=== PATIENT | female | born 1965 | race Caucasian/White ===

== ENCOUNTER 2017-02-21 18:47 | Emergency (ER) | payer OTHER ==
[2017-02-21 18:55] VITALS: TEMP 99; BMI 22.8
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
[2017-02-21] MEDS ORDERED: ACETAMINOPHEN 1000 MG/100 ML VIAL (NON FORMULARY) IVPB ONE (20:08)
[2017-02-21] MEDS ORDERED: ACETAMINOPHEN INJECTION 100 ML IVPB ONE (20:37)
--- NOTE | 2017-02-21 21:42 | PDOC ---
*Physical Exam - Vital Signs Last Vital Signs Temp Pulse Resp BP Pulse Ox 99.0 F 125 H 16 122/60 97 02/21/17 18:51 02/21/17 18:51 02/21/17 18:51 02/21/17 18:51 02/21/17 18:51 ED Treatment Course - Medications Given in the ED: ED Medications Discontinued Medications Generic Name Dose Route Start Last Admin Trade Name Freq PRN Reason Stop Dose Admin Acetaminophen 1,000 mg 02/21/17 20:08 02/21/17 21:35 Ofirmev Injection - IVPB 02/21/17 20:09 1,000 mg ONCE ONE Administration Medical Decision Making - Medical Decision Making 02/21/17 21:42 agree with care from [employer] Josselin
[2017-02-21 21:48] LABS: BASOPHIL 0.6 % (0-2.0); MCHC 33.7 g/dl (32.0-36.0); MEAN CELL VOLUME 86.1 fl (80-96); MEAN PLT VOLUME 8.8 fl (7.5-11.1); NEUTROPHILS 62.8 % (42.8-82.8); PLATELET COUNT 293 K/MM3 (134-434); RDW 13.2 % (11.6-15.6); WHITE BLOOD COUNT 12.5 K/mm3 (4.0-10.0)
[2017-02-21 22:09] LABS: ALBUMIN 3.9 g/dl (3.4-5.0); ANION GAP 9 (8-16); BILIRUBIN,TOTAL 0.3 mg/dL (0.2-1.0); CALCIUM 8.9 mg/dL (8.5-10.1); CO2 24 mmol/L (21-32); CREATININE 0.8 mg/dL (0.55-1.02); SGPT/ALT 32 U/L (12-78); TOT PROT 8.3 g/dl (6.4-8.2)
[2017-02-21 22:10] LABS: ALK PHOS 82 U/L (45-117)
[2017-02-21 22:12] LABS: GLUCOSE,RANDOM 347 mg/dL (74-106); SGOT/AST 19 U/L (15-37)
[2017-02-21] MEDS ORDERED: INSULIN (NOVOLOG) ASPART 100 UNITS/ML 10ML VIAL SQ ONE (22:24)
[2017-02-21] MEDS ORDERED: INSULIN (NOVOLOG) ASPART 100 UNITS/ML 10ML VIAL ONE (23:08)
[2017-02-22] MEDS ORDERED: KETOROLAC TROMETHAMINE 30 MG/1 ML VIAL IVPUSH ONE (01:34)
[2017-02-22] MEDS ORDERED: KETOROLAC TROMETHAMINE 30 MG/1 ML VIAL ONE (01:43)
[2017-02-22 02:21] VITALS: BP 102/76; PULSE 84
--- NOTE | 2017-02-22 09:05 | EKG ---
Test Reason : Blood Pressure : / mmHG Vent. Rate : 082 BPM Atrial Rate : 082 BPM P-R Int : 148 ms QRS Dur : 136 ms QT Int : 414 ms P-R-T Axes : 071 -56 051 degrees QTc Int : 483 ms NORMAL SINUS RHYTHM RIGHT BUNDLE BRANCH BLOCK LEFT ANTERIOR FASCICULAR BLOCK BIFASCICULAR BLOCK MINIMAL VOLTAGE CRITERIA FOR LVH, MAY BE NORMAL VARIANT SEPTAL INFARCT , AGE UNDETERMINED ABNORMAL ECG WHEN COMPARED WITH ECG OF 29-AUG-2015 12:22, NO SIGNIFICANT CHANGE WAS FOUND Confirmed by YOEL SIMPSON MD ([id number]) on 02/22/2017 9:05:05 AM Referred By: Confirmed By:YOEL SIMPSON MD
--- NOTE | 2017-02-22 13:18 | PDOC ---
Patient Follow-up (Call Back) - Post ED Follow - Up Condition at time of discharge: Improved Disposition at time of original discharge: HOME Reason for Call Back: Radiology (needs renal US r/o solid mass. no answer .) - Disposition Additional Instructions/Notes: spoke with the patient regarding the cat scan results. Pt is aware she needs a renal sonogram. Pt understands she may return to ER if she is still having pain( pt states she continues to have pain, however is taking care of her child who is admitted to the hospital at this time). Pt understands she can return to ER at any time for a further evaluation.
== END 2017-02-22 02:26 | disposition home or self-care (01) ==
LOC: JER 18:47
PROC: 3E033NZ Introduction of Analgesics, Hypnotics, Sedatives into Peripheral Vein, Percutaneous Approach (ICD-10-PCS; principal; 2017-02-21)
PROC: 3E013VG Introduction of Insulin into Subcutaneous Tissue, Percutaneous Approach (ICD-10-PCS; 2017-02-21)
PROC: 3E0333Z Introduction of Anti-inflammatory into Peripheral Vein, Percutaneous Approach (ICD-10-PCS; 2017-02-21)
DX: Z04.1 Encounter for examination and observation following transport accident (principal); V49.3XXA Car occupant (driver) (passenger) injured in unspecified nontraffic accident, initial encounter; Y93.89 Activity, other specified; Y92.410 Unspecified street and highway as the place of occurrence of the external cause; C43.9 Malignant melanoma of skin, unspecified
CPT/HCPCS: 36415; 70450-TC; 72125-TC; 72128-TC; 72131-TC; 73562-TC-RT; 80053; 84703; 85025; 93005; 93010; 99283-25

== ENCOUNTER 2022-04-06 13:03 | Emergency (ER) | payer OTHER ==
[2022-04-06] MEDS ORDERED: ACETAMINOPHEN 325 MG TABLET (FP) PO ONE (13:45)
[2022-04-06 14:37] VITALS: BP 145/63; PULSE 77; RESP 20; TEMP 98; BMI 23.1
[2022-04-06] MEDS ORDERED: ACETAMINOPHEN 325 MG TABLET (FP) ONE (14:37)
[2022-04-06 14:43] LABS: HEMATOCRIT 40.3 % (32.4-45.2); HEMOGLOBIN 14.1 G/dL (10.7-15.3); MCH 30.9 pg (25.7-33.7); MCHC 34.9 g/dl (32.0-36.0); MEAN CELL VOLUME 88.5 fl (80-96); MEAN PLT VOLUME 7.8 fl (7.5-11.1); PLATELET COUNT 230.9 10^3/uL (134-434); RBC 4.55 10^6/uL (3.60-5.2); RDW 12.7 % (11.6-15.6); WHITE BLOOD COUNT 7.4 10^3/uL (4.0-10.8)
[2022-04-06 14:46] LABS: ALBUMIN 3.6 g/dl (3.4-5.0); BILIRUBIN,TOTAL 0.6 mg/dl (0.2-1); CALCIUM 9.2 mg/dl (8.5-10); CREATININE 0.6 mg/dl (0.55-1.3); MAGNESIUM 1.7 mg/dL (1.8-2.4); TOT PROT 7.4 g/dl (6.4-8.2)
[2022-04-06 15:13] LABS: INR 0.93 (0.83-1.09); PROTHROMBIN TIME (PATIENT) 10.7 SEC (9.7-13.0)
[2022-04-06 15:16] LABS: ACTIVATED PTT 26.2 SECONDS (25.2-36.5)
[2022-04-06 17:04] LABS: PLATELET ESTIMATE ADEQUATE
== END 2022-04-06 17:39 | disposition left against medical advice (07) ==
LOC: FER 13:03
DX: E11.40 Type 2 diabetes mellitus with diabetic neuropathy, unspecified (principal); M48.061 Spinal stenosis, lumbar region without neurogenic claudication; R60.0 Localized edema
CPT/HCPCS: 0241U-QW; 36415; 71045-TC-FY; 80053; 83735; 83880; 84484; 85025; 85610; 85730; 93005; 93970-TC; 99285-25

== ENCOUNTER 2022-11-18 14:24 | Observation (INO) | payer OTHER ==
[2022-11-18] MEDS ORDERED: SODIUM CHLORIDE 0.9% 500 ML INFUS.BAG IV ONE (14:51)
[2022-11-18] MEDS ORDERED: ACETAMINOPHEN 500 MG TABLET (FP) PO ONE (15:46)
[2022-11-18 15:47] LABS: HEMATOCRIT 42.4 % (32.4-45.2); HEMOGLOBIN 14.4 G/dL (10.7-15.3); MCH 30.1 pg (25.7-33.7); MEAN CELL VOLUME 88.5 fl (80-96); MEAN PLT VOLUME 8.4 fl (7.5-11.1); PLATELET COUNT 202.3 10^3/uL (134-434); RBC 4.79 10^6/uL (3.60-5.2); WHITE BLOOD COUNT 8.8 10^3/uL (4.0-10.8)
[2022-11-18] MEDS ORDERED: ACETAMINOPHEN 500 MG TABLET (FP) ONE ×2 (15:48→15:50)
[2022-11-18 15:49] LABS: EPITHELIAL CELLS FEW /hpf
[2022-11-18 16:10] LABS: ALBUMIN 4.4 g/dl (3.4-5.0); BILIRUBIN,TOTAL 0.5 mg/dl (0.2-1); BLOOD UREA NITROGEN 14.4 mg/dl (7-18); CALCIUM 9.9 mg/dl (8.5-10.1); CREATININE 0.7 mg/dl (0.6-1.3); POTASSIUM 3.7 mmol/L (3.5-5.1); SGOT/AST 15.7 U/L (15-37); SGPT/ALT 18.2 U/L (7-52); TOT PROT 7.9 g/dl (6.4-8.2)
[2022-11-18 17:01] LABS: VENOUS BASE EXCESS -2.4 mmol/L (-2-2); VENOUS O2 SATURATION 61.3 % (70-80); VENOUS PCO2 48.1 mmHg (38-52); VENOUS PH 7.318 (7.310-7.410)
[2022-11-18 17:13] LABS: N-TERMINAL BNP 137.8 pg/ml (5-125)
[2022-11-18 17:54] LABS: LACTIC ACID 2.4 mmol/L (0.4-2.0)
[2022-11-18 18:58] VITALS: BMI 23.6
[2022-11-18] MEDS ORDERED: DOCUSATE SODIUM 100 MG CAPSULE (FP) PO PRN (21:12)
[2022-11-18] MEDS ORDERED: MELATONIN 5 MG TABLETS PO PRN (21:17)
[2022-11-18] MEDS ORDERED: ACETAMINOPHEN 1000 MG/100 ML BAG IVPB PRN ×2 (21:17→21:19)
[2022-11-18] MEDS: INSULIN SLIDING SCALE (NOVOLOG) 1 VIAL SQ SCH (21:50)
[2022-11-19] MEDS ORDERED: GABAPENTIN 300 MG CAPSULE PO ONE (00:45)
[2022-11-19] MEDS: INSULIN SLIDING SCALE (NOVOLOG) 1 VIAL SQ SCH ×4 (05:50→17:12)
[2022-11-19 08:23] LABS: HEMATOCRIT 39.2 % (32.4-45.2); HEMOGLOBIN 13.3 G/dL (10.7-15.3); MCH 30.1 pg (25.7-33.7); MCHC 33.9 g/dl (32.0-36.0); MEAN PLT VOLUME 8.3 fl (7.5-11.1); PLATELET COUNT 187.1 10^3/uL (134-434); RBC 4.41 10^6/uL (3.60-5.2); RDW 13.3 % (11.6-15.6); WHITE BLOOD COUNT 6.5 10^3/uL (4.0-10.8)
[2022-11-19 08:24] LABS: INR 1.01 (0.83-1.09); PROTHROMBIN TIME (PATIENT) 11.7 SEC (9.7-13.0)
[2022-11-19 08:27] LABS: ACTIVATED PTT 24.8 SECONDS (25.2-36.5)
[2022-11-19] MEDS ORDERED: SODIUM CHLORIDE 1,000 ML IV SCH (08:45)
[2022-11-19 08:58] LABS: BLOOD UREA NITROGEN 11.6 mg/dl (7-18); CALCIUM 8.7 mg/dl (8.5-10.1); CREATININE 0.6 mg/dl (0.6-1.3); MAGNESIUM 1.8 mg/dL (1.8-2.4); PHOSPHOROUS 4.14 (2.5-4.9); POTASSIUM 3.7 mmol/L (3.5-5.1)
[2022-11-19 09:11] VITALS: RESP 18; TEMP 98.4
[2022-11-19] MEDS: LIPASE/PROTEASE/AMYLASE 6,000 UNIT CAPSULE PO SCH ×3 (09:35→18:41)
[2022-11-19] MEDS: GABAPENTIN 300 MG CAPSULE PO SCH ×2 (09:35→18:41)
[2022-11-19] MEDS ORDERED: ENOXAPARIN NA (PORCINE) 40 MG/0.4 ML DISP.SYRIN SQ SCH (10:00)
[2022-11-19] MEDS ORDERED: CLOPIDOGREL BISULFATE 75 MG TABLET (FP) PO SCH (10:00)
[2022-11-19] MEDS ORDERED: CEFTRIAXONE 1 GM in DEXTROSE 5%-WATER - 50 ML IVPB SCH (10:00)
[2022-11-19 14:21] VITALS: BP 119/5; PULSE 64
== END 2022-11-19 19:29 | disposition home or self-care (01) ==
LOC: FER 14:24 → FM/S 17:57
PROVIDERS: ADMIT Internal Medicine
PROC: 3E0337Z Introduction of Electrolytic and Water Balance Substance into Peripheral Vein, Percutaneous Approach (ICD-10-PCS; principal; 2022-11-18)
PROC: 3E013VG Introduction of Insulin into Subcutaneous Tissue, Percutaneous Approach (ICD-10-PCS; 2022-11-18)
PROC: 3E03329 Introduction of Other Anti-infective into Peripheral Vein, Percutaneous Approach (ICD-10-PCS; 2022-11-18)
PROC: 3E033NZ Introduction of Analgesics, Hypnotics, Sedatives into Peripheral Vein, Percutaneous Approach (ICD-10-PCS; 2022-11-18)
DX: N39.0 Urinary tract infection, site not specified (principal); S09.90XA Unspecified injury of head, initial encounter; Z95.0 Presence of cardiac pacemaker; Z85.820 Personal history of malignant melanoma of skin; E10.9 Type 1 diabetes mellitus without complications; Z96.41 Presence of insulin pump (external) (internal); W18.39XA Other fall on same level, initial encounter; Y93.89 Activity, other specified; Y92.22 Religious institution as the place of occurrence of the external cause
CPT/HCPCS: 36415; 70450-TC; 71045-TC-FY; 80048; 80053; 80307; 81003; 81015; 82803; 82962; 83605; 83735; 83880; 84100; 84484; 85027; 85610; 85730; 93005; 96372; 96374; 96375; 97116-GP; 97162-GP; 99285-25; G0378

== ENCOUNTER 2023-06-03 18:09 | Inpatient (IN) | payer OTHER ==
[2023-06-03] MEDS ORDERED: ONDANSETRON 4 MG/2 ML VIAL ONE (19:41)
[2023-06-03] MEDS: LACTATED RINGERS SOLUTION 1000 ML INFUS.BAG IV ONE ×2 (20:11→23:55)
[2023-06-03] MEDS: ONDANSETRON 4 MG/2 ML VIAL IVPB ONE (20:11)
[2023-06-03 20:59] LABS: VENOUS BASE EXCESS -2.4 mmol/L (-2-2); VENOUS O2 SATURATION 58.9 % (70-80); VENOUS PCO2 48.5 mmHg (38-52); VENOUS PH 7.314 (7.310-7.410)
[2023-06-03 20:59] LABS: BASO % 0.4 % (0-2.0); HEMATOCRIT 38.1 % (32.4-45.2); HEMOGLOBIN 12.4 GM/dL (10.7-15.3); LYMPH % 7.8 % (8-40); MCHC 32.4 g/dl (32.0-36.0); MEAN CELL VOLUME 83.1 fl (80-96); MEAN PLT VOLUME 7.7 fl (7.5-11.1); NEUT % 85.8 % (42.8-82.8); PLATELET COUNT 202 10^3/uL (134-434); RBC 4.58 M/mm3 (3.60-5.2); RDW 15.3 % (11.6-15.6); WHITE BLOOD COUNT 19.1 K/mm3 (4.0-10.0)
[2023-06-03] MEDS ORDERED: METOCLOPRAMIDE HCL INJECTION 10 MG/2 ML VIAL ONE (21:25)
[2023-06-03 21:26] LABS: CHLORIDE 102 mmol/L (98-107); SODIUM 139 mmol/L (136-145)
[2023-06-03 21:28] LABS: CALCIUM 8.6 mg/dL (8.5-10.1)
[2023-06-03 21:29] LABS: ALBUMIN 2.5 g/dl (3.4-5.0); ANION GAP 12 mmol/L (4-13); BLOOD UREA NITROGEN 31.5 mg/dL (7-18); CO2 25 mmol/L (21-32); MAGNESIUM 1.5 mg/dL (1.8-2.4)
[2023-06-03 21:31] LABS: CREATININE 1.4 mg/dL (0.55-1.3); SGOT/AST 17 U/L (15-37); SGPT/ALT 16 U/L (13-61)
[2023-06-03 21:32] LABS: PHOSPHOROUS 4.4 mg/dL (2.5-4.9)
[2023-06-03 21:33] LABS: TOT PROT 6.9 g/dl (6.4-8.2)
[2023-06-03 21:34] LABS: ALK PHOS 70 U/L (45-117)
[2023-06-03] MEDS: METOCLOPRAMIDE HCL INJECTION 10 MG/2 ML VIAL IVPUSH ONE ×2 (21:40→22:53)
[2023-06-03 21:46] LABS: LACTIC ACID 4.9 mmol/L (0.4-2.0)
[2023-06-03] MEDS ORDERED: ACETAMINOPHEN INJECTION 100 ML IVPB ONE (21:56)
[2023-06-03 22:07] LABS: EPI CELLS 24 /uL (0-25.1); HYALINE CASTS 0 /uL (0-3.1); PH,URINE 5.5 (5.0-8.0); URINE APPEARANCE CLOUDY; URINE BACTERIA >9,000 /uL (0-1359); URINE BILIRUBIN NEGATIVE (NEGATIVE); URINE COLOR YELLOW; URINE GLUCOSE (UA) 3+ (NEGATIVE); URINE KETONE TRACE (NEGATIVE); URINE LEUK ESTERASE 1+ (NEGATIVE); URINE NITRITE NEGATIVE (NEGATIVE); URINE PROTEIN 3+ (NEGATIVE); URINE RBC 38 /uL (0-23.9); URINE WBC 684 /uL (0-25.8)
[2023-06-03 22:09] LABS: GLUCOSE,RANDOM 409 mg/dL (74-106)
[2023-06-03] MEDS ORDERED: CEFTRIAXONE 1 GM/50 ML BAG ONE (22:41)
[2023-06-03] MEDS: CEFTRIAXONE 1,000 MG in DEXTROSE 5%-WATER - 50 ML IVPB ONE (22:49)
[2023-06-03] MEDS: INSULIN REGULAR HUMAN 100 UNITS/ML *VIAL SQ ONE (22:52)
[2023-06-04] MEDS ORDERED: MAGNESIUM SULFATE IN WATER 2 GM/50 ML IVPB IVPB ONE (00:40)
[2023-06-04] MEDS: LACTATED RINGERS SOLUTION 1,000 ML/1,000 ML INFUS.BAG IV STA ×2 (01:00→03:59)
[2023-06-04] MEDS: MAGNESIUM SULF 50% (8.12 MEQ/2 ML-1 GM VIAL) IVPB ONE (01:06)
[2023-06-04] MEDS: LACTATED RINGERS SOLUTION 1,000 ML/1,000 ML INFUS.BAG IV SCH ×2 (01:06→17:08)
[2023-06-04 02:12] LABS: LACTIC ACID 7.2 mmol/L (0.4-2.0)
[2023-06-04] MEDS ORDERED: TRIMETHOBENZAMIDE HCL 200MG/2ML INJ IM ONE (03:28)
[2023-06-04] MEDS: TRIMETHOBENZAMIDE HCL 200MG/2ML INJ IM PRN (03:56)
[2023-06-04] MEDS ORDERED: FENTANYL CITRATE/PF 50 MCG/ML VIAL ONE (04:17)
[2023-06-04] MEDS ORDERED: NOREPINEPHRINE BITARTRATE/D5W 8 MG/250 ML BAG IVPB ONE (05:05)
[2023-06-04 05:24] LABS: VENOUS BASE EXCESS -1.7 mmol/L (-2-2); VENOUS O2 SATURATION 52.8 % (70-80); VENOUS PCO2 44.7 mmHg (38-52); VENOUS PH 7.351 (7.310-7.410)
[2023-06-04 05:27] LABS: INR 1.44 (0.83-1.09); PROTHROMBIN TIME (PATIENT) 16.6 SEC (9.7-13.0)
[2023-06-04] MEDS: VANCOMYCIN/WATER 2 GRAMS 2,000 MG/400 ML PIGGYBACK IVPB ONE (05:27)
[2023-06-04] MEDS: PIPERACILLIN/TAZOB 4.5 GM 4.5 GM in DEXTROSE 5%-WATER 100 ML IVPB SCH (05:27)
[2023-06-04] MEDS: NOREPINEPHRINE BITARTRATE/D5W 8 MG/250 ML BAG IVPB SCH (05:27)
[2023-06-04 05:30] LABS: ACTIVATED PTT 28.5 SECONDS (25.2-36.5)
[2023-06-04 05:43] LABS: HEMATOCRIT 29.6 % (32.4-45.2); HEMOGLOBIN 9.5 GM/dL (10.7-15.3); MCH 27.2 pg (25.7-33.7); MCHC 32.1 g/dl (32.0-36.0); MEAN CELL VOLUME 84.6 fl (80-96); MEAN PLT VOLUME 8.3 fl (7.5-11.1); PLATELET COUNT 145 10^3/uL (134-434); WHITE BLOOD COUNT 17.4 K/mm3 (4.0-10.0)
[2023-06-04 05:46] LABS: POTASSIUM 3.9 mmol/L (3.5-5.1); SODIUM 138 mmol/L (136-145)
[2023-06-04 05:47] LABS: CHLORIDE 103 mmol/L (98-107)
[2023-06-04 05:49] LABS: CALCIUM 7.7 mg/dL (8.5-10.1)
[2023-06-04 05:50] LABS: ANION GAP 11 mmol/L (4-13); CO2 24 mmol/L (21-32); MAGNESIUM 1.9 mg/dL (1.8-2.4)
[2023-06-04 05:53] LABS: CREATININE 1.7 mg/dL (0.55-1.3); PHOSPHOROUS 3.2 mg/dL (2.5-4.9); SGOT/AST 18 U/L (15-37); SGPT/ALT 16 U/L (13-61)
[2023-06-04 05:55] LABS: ALK PHOS 50 U/L (45-117); TOT PROT 5.4 g/dl (6.4-8.2)
[2023-06-04 06:14] LABS: ALBUMIN 1.9 g/dl (3.4-5.0); GLUCOSE,RANDOM 422 mg/dL (74-106)
[2023-06-04 06:30] LABS: LACTIC ACID 4.6 mmol/L (0.4-2.0)
[2023-06-04] MEDS: INSULIN ASPART SLIDING SCALE (NOVOLOG) 1 VIAL SQ SCH (06:50)
[2023-06-04] MEDS: ACETAMINOPHEN 1000 MG/100 ML BAG IVPB PRN (07:04)
[2023-06-04 07:05] LABS: ANISOCYTOSIS 3+; MACROCYTOSIS 0; ROULEAU 1+
[2023-06-04] MEDS: MUPIROCIN 2% TOPICAL OINTMENT FOR DECOLONIZATION NS SCH (09:59)
[2023-06-04] MEDS: PANTOPRAZOLE SODIUM 40 MG VIAL IVPUSH SCH (09:59)
[2023-06-04] MEDS: GABAPENTIN 300 MG CAPSULE PO SCH (09:59)
[2023-06-04] MEDS ORDERED: CEFTRIAXONE 1 GM in DEXTROSE 5%-WATER - 50 ML IVPB SCH (10:00)
[2023-06-04] MEDS ORDERED: PANTOPRAZOLE 40 MG TABLET PO SCH (10:00)
[2023-06-04] MEDS ORDERED: morphine SULFATE 4 MG/ML VIAL ONE (10:27)
[2023-06-04] MEDS ORDERED: INSULIN (NOVOLOG) ASPART 100 UNITS/ML 10ML VIAL ONE (10:45)
[2023-06-04] MEDS: TOPIRAMATE 100 MG TABLET PO SCH (10:48)
[2023-06-04] MEDS: morphine SULFATE 4 MG/ML VIAL IVPUSH PRN (10:51)
[2023-06-04] MEDS: ENOXAPARIN NA (PORCINE) 30 MG/0.3 ML DISP.SYRIN SQ SCH ×2 (11:01→12:51)
[2023-06-04] MEDS: INSULIN REGULAR 100 UNITS in SODIUM CHLORIDE 99 ML IVPB SCH ×4 (13:02→16:58)
[2023-06-04] MEDS: HEPARIN NA (PORCINE) 5,000 UNITS/ML 1ML VIAL SQ SCH (13:09)
[2023-06-04] MEDS: PIPERACILLIN/TAZOB 3.375 GM 3.375 GM in DEXTROSE 5%-WATER - 50 ML IVPB SCH (17:02)
[2023-06-04] MEDS: CHLORHEXIDINE GLUCONATE 4% CLEANSER FOR DECOLONIZATION TP SCH (22:54)
[2023-06-05] MEDS ORDERED: ACETAMINOPHEN 1000 MG/100 ML BAG IVPB PRN (06:36)
[2023-06-05 06:42] LABS: HEMATOCRIT 31.6 % (32.4-45.2); HEMOGLOBIN 10.2 GM/dL (10.7-15.3); MCH 27.1 pg (25.7-33.7); MCHC 32.2 g/dl (32.0-36.0); MEAN CELL VOLUME 84.1 fl (80-96); MEAN PLT VOLUME 8.1 fl (7.5-11.1); PLATELET COUNT 152 10^3/uL (134-434); RBC 3.76 M/mm3 (3.60-5.2); RDW 15.4 % (11.6-15.6); WHITE BLOOD COUNT 17.4 K/mm3 (4.0-10.0)
[2023-06-05 07:02] LABS: POTASSIUM 3.5 mmol/L (3.5-5.1)
[2023-06-05 07:04] LABS: CALCIUM 7.7 mg/dL (8.5-10.1)
[2023-06-05 07:05] LABS: ALBUMIN 1.9 g/dl (3.4-5.0); MAGNESIUM 2.2 mg/dL (1.8-2.4)
[2023-06-05 07:08] LABS: CREATININE 1.2 mg/dL (0.55-1.3); PHOSPHOROUS 3.2 mg/dL (2.5-4.9)
[2023-06-05 07:09] LABS: TOT PROT 5.9 g/dl (6.4-8.2)
[2023-06-05 07:10] LABS: BILIRUBIN,TOTAL 0.6 mg/dL (0.2-1)
[2023-06-05 07:15] LABS: LACTIC ACID 2.2 mmol/L (0.4-2.0)
[2023-06-05 09:05] LABS: ANISOCYTOSIS 0; HELMET CELLS 0; HOWELL-JOLLY BODIES 0; MACROCYTOSIS 0; OVALOCYTE 0; ROULEAU 0; SICKELED CELLS 0; TARGET CELLS 0; TEAR DROP CELLS 0; TOXIC GRANULATION 0
[2023-06-05] MEDS: SODIUM CHLORIDE 1,000 ML IV SCH (13:00)
[2023-06-05] MEDS: ONDANSETRON 4 MG/2 ML VIAL IVPUSH PRN (13:13)
[2023-06-05 14:46] VITALS: BMI 23.2
[2023-06-05] MEDS: INSULIN ASPART SLIDING SCALE (NOVOLOG) 1 VIAL SQ SCH (17:20)
[2023-06-05] MEDS: INSULIN (NOVOLOG) ASPART 100 UNITS/ML 10ML VIAL SQ SCH (20:07)
[2023-06-05] MEDS: INSULIN (LEVEMIR) 100 UNITS/ML UNITS SQ SCH (22:53)
[2023-06-06 06:32] LABS: BASO % 1.1 % (0-2.0); EOS % 0.1 % (0-4.5); HEMOGLOBIN 8.6 GM/dL (10.7-15.3); LYMPH % 8.5 % (8-40); MCH 26.9 pg (25.7-33.7); MCHC 31.8 g/dl (32.0-36.0); MEAN CELL VOLUME 84.4 fl (80-96); MEAN PLT VOLUME 7.8 fl (7.5-11.1); MONO % 5.3 % (3.8-10.2); PLATELET COUNT 142 10^3/uL (134-434); RBC 3.19 M/mm3 (3.60-5.2); RDW 16.1 % (11.6-15.6); WHITE BLOOD COUNT 13.3 K/mm3 (4.0-10.0)
[2023-06-06 06:53] LABS: POTASSIUM 3.2 mmol/L (3.5-5.1)
[2023-06-06 06:56] LABS: CALCIUM 7.7 mg/dL (8.5-10.1)
[2023-06-06 06:57] LABS: ALBUMIN 1.6 g/dl (3.4-5.0); BLOOD UREA NITROGEN 30.7 mg/dL (7-18); MAGNESIUM 2.3 mg/dL (1.8-2.4)
[2023-06-06 07:00] LABS: CREATININE 1.1 mg/dL (0.55-1.3); PHOSPHOROUS 3.2 mg/dL (2.5-4.9)
[2023-06-06 07:02] LABS: BILIRUBIN,TOTAL 0.5 mg/dL (0.2-1); TOT PROT 5.7 g/dl (6.4-8.2)
[2023-06-06] MEDS: KCL 20 MEQ PREMIX BAG 20 MEQ/100 ML INFUS.BAG IVPB SCH (08:04)
[2023-06-06] MEDS: METOCLOPRAMIDE HCL INJECTION 10 MG/2 ML VIAL IVPUSH ONE (12:40)
[2023-06-06] MEDS: INSULIN (NOVOLOG) ASPART 100 UNITS/ML 10ML VIAL SQ SCH (13:35)
[2023-06-07 07:05] LABS: HEMATOCRIT 24.5 % (32.4-45.2); HEMOGLOBIN 7.8 GM/dL (10.7-15.3); MCH 27.2 pg (25.7-33.7); MCHC 31.8 g/dl (32.0-36.0); MEAN CELL VOLUME 85.7 fl (80-96); MEAN PLT VOLUME 8.1 fl (7.5-11.1); PLATELET COUNT 154 10^3/uL (134-434); RBC 2.87 M/mm3 (3.60-5.2); RDW 15.9 % (11.6-15.6); WHITE BLOOD COUNT 11.1 K/mm3 (4.0-10.0)
[2023-06-07 07:24] LABS: POTASSIUM 3.1 mmol/L (3.5-5.1)
[2023-06-07 07:31] LABS: PHOSPHOROUS 1.7 mg/dL (2.5-4.9)
[2023-06-07 07:32] LABS: ALBUMIN 1.5 g/dl (3.4-5.0); BLOOD UREA NITROGEN 27.4 mg/dL (7-18)
[2023-06-07 07:33] LABS: BILIRUBIN,TOTAL 0.7 mg/dL (0.2-1); CALCIUM 7.4 mg/dL (8.5-10.1); MAGNESIUM 2.3 mg/dL (1.8-2.4); TOT PROT 5.5 g/dl (6.4-8.2)
[2023-06-07 08:54] LABS: ANISOCYTOSIS 0; MACROCYTOSIS 0
[2023-06-07] MEDS: POTASSIUM CHLORIDE TABS 20 MEQ TABLET.ER (FP) PO ONE (13:30)
[2023-06-07] MEDS: NAPH,MB-DB/K PH,MBDB POWDER PACKET PO ONE (15:41)
[2023-06-07] MEDS: ACETAMINOPHEN 1000 MG/100 ML BAG IVPB PRN (15:42)
[2023-06-07] MEDS: POTASSIUM PHOSPHATE 45 MM in SODIUM CHLORIDE 500 ML IVPB ONE (17:22)
[2023-06-07] MEDS ORDERED: TRIMETHOBENZAMIDE HCL 200MG/2ML INJ IM PRN (21:14)
[2023-06-07] MEDS ORDERED: SODIUM CHLORIDE 1,000 ML IV SCH (21:14)
[2023-06-07] MEDS ORDERED: MUPIROCIN 2% TOPICAL OINTMENT FOR DECOLONIZATION NS SCH (22:00)
[2023-06-07] MEDS ORDERED: CHLORHEXIDINE GLUCONATE 4% CLEANSER FOR DECOLONIZATION TP SCH (22:00)
[2023-06-07] MEDS ORDERED: INSULIN (NOVOLOG) ASPART 100 UNITS/ML 10ML VIAL ONE (22:09)
[2023-06-07] MEDS: GABAPENTIN 300 MG CAPSULE PO SCH (23:07)
[2023-06-07] MEDS: HEPARIN NA (PORCINE) 5,000 UNITS/ML 1ML VIAL SQ SCH (23:07)
[2023-06-07] MEDS: INSULIN (LEVEMIR) 100 UNITS/ML UNITS SQ SCH (23:08)
[2023-06-07] MEDS: INSULIN ASPART SLIDING SCALE (NOVOLOG) 1 VIAL SQ SCH (23:09)
[2023-06-07] MEDS: TOPIRAMATE 100 MG TABLET PO SCH (23:10)
[2023-06-08] MEDS: PIPERACILLIN/TAZOB 3.375 GM 3.375 GM in DEXTROSE 5%-WATER - 50 ML IVPB SCH (02:32)
[2023-06-08] MEDS: INSULIN (NOVOLOG) ASPART 100 UNITS/ML 10ML VIAL SQ SCH ×2 (07:17→13:08)
[2023-06-08] MEDS: NOREPINEPHRINE BITARTRATE/D5W 8 MG/250 ML BAG IVPB SCH (08:31)
[2023-06-08] MEDS: PIPERACILLIN/TAZOB 4.5 GM 4.5 GM in DEXTROSE 5%-WATER 100 ML IVPB SCH (08:32)
[2023-06-08] MEDS: PANTOPRAZOLE SODIUM 40 MG VIAL IVPUSH SCH (10:52)
[2023-06-08 14:25] LABS: HEMATOCRIT 27.5 % (32.4-45.2); HEMOGLOBIN 8.8 GM/dL (10.7-15.3); MCH 27.6 pg (25.7-33.7); MCHC 31.9 g/dl (32.0-36.0); MEAN CELL VOLUME 86.5 fl (80-96); RBC 3.18 M/mm3 (3.60-5.2); RDW 16.4 % (11.6-15.6); WHITE BLOOD COUNT 14.5 K/mm3 (4.0-10.0)
[2023-06-08 14:50] LABS: POTASSIUM 3.6 mmol/L (3.5-5.1)
[2023-06-08 14:53] LABS: CALCIUM 7.4 mg/dL (8.5-10.1)
[2023-06-08 14:54] LABS: ALBUMIN 1.6 g/dl (3.4-5.0); BLOOD UREA NITROGEN 21.5 mg/dL (7-18); MAGNESIUM 2.3 mg/dL (1.8-2.4)
[2023-06-08 14:57] LABS: CREATININE 1.1 mg/dL (0.55-1.3); PHOSPHOROUS 3.3 mg/dL (2.5-4.9)
[2023-06-08 14:58] LABS: BILIRUBIN,TOTAL 0.6 mg/dL (0.2-1)
[2023-06-08 14:59] LABS: TOT PROT 5.9 g/dl (6.4-8.2)
[2023-06-08] MEDS: MAG HYDROX/AL HYDROX/SIMETH 30 ML UNIT-DOSE CUP PO PRN (16:02)
[2023-06-08] MEDS ORDERED: PIPERACILLIN/TAZOBACTAM 3.375 GM VIAL IVPB ONE (17:28)
[2023-06-08] MEDS: SODIUM CHLORIDE 1,000 ML IV STA (19:36)
[2023-06-08] MEDS ORDERED: INSULIN (NOVOLOG) ASPART 100 UNITS/ML 10ML VIAL ONE (21:05)
[2023-06-08] MEDS: ACETAMINOPHEN 1000 MG/100 ML BAG IVPB PRN (21:09)
[2023-06-08] MEDS: traZODone HCL 50 MG TABLET (FP) PO SCH (21:10)
[2023-06-08] MEDS: INSULIN (LEVEMIR) 100 UNITS/ML UNITS SQ SCH (21:26)
[2023-06-08] MEDS ORDERED: TOPIRAMATE 100 MG TABLET PO SCH (22:00)
[2023-06-08] MEDS: CHOLESTYRAMINE/SUCROSE 4 GM PACKET PO SCH (22:52)
[2023-06-09] MEDS: CHOLESTYRAMINE/ASPARTAME 4 GM PACKET PO SCH (09:37)
[2023-06-09] MEDS: DULoxetine HCL 30 MG CAPSULE.DR PO SCH (09:51)
[2023-06-09 09:56] LABS: BASO % 0.2 % (0-2.0); HEMATOCRIT 23.4 % (32.4-45.2); HEMOGLOBIN 7.7 GM/dL (10.7-15.3); LYMPH % 9.7 % (8-40); MCH 27.9 pg (25.7-33.7); MEAN CELL VOLUME 84.5 fl (80-96); MEAN PLT VOLUME 8.2 fl (7.5-11.1); MONO % 4.8 % (3.8-10.2); NEUT % 84.3 % (42.8-82.8); PLATELET COUNT 270 10^3/uL (134-434); RBC 2.76 M/mm3 (3.60-5.2); WHITE BLOOD COUNT 13.8 K/mm3 (4.0-10.0)
[2023-06-09 09:58] LABS: POTASSIUM 3.3 mmol/L (3.5-5.1)
[2023-06-09 10:08] LABS: ALBUMIN 1.4 g/dl (3.4-5.0); CALCIUM 7.1 mg/dL (8.5-10.1)
[2023-06-09 10:09] LABS: BLOOD UREA NITROGEN 16.1 mg/dL (7-18); MAGNESIUM 2.3 mg/dL (1.8-2.4)
[2023-06-09 10:10] LABS: BILIRUBIN,TOTAL 0.4 mg/dL (0.2-1); TOT PROT 5.6 g/dl (6.4-8.2)
[2023-06-09] MEDS: POTASSIUM CHLORIDE ORAL LIQUID 20 MEQ/15 ML PO ONE ×2 (12:04→13:40)
[2023-06-09] MEDS: SODIUM CHLORIDE 1,000 ML IV SCH (13:38)
[2023-06-09] MEDS: KCL 10 MEQ IVPB 10 MEQ/100 ML INFUS.BAG IVPB SCH (13:39)
[2023-06-09 16:40] LABS: BASO % 0.2 % (0-2.0); EOS % 1.5 % (0-4.5); HEMATOCRIT 25.3 % (32.4-45.2); HEMOGLOBIN 8.2 GM/dL (10.7-15.3); LYMPH % 11.6 % (8-40); MCH 27.6 pg (25.7-33.7); MCHC 32.5 g/dl (32.0-36.0); MEAN PLT VOLUME 7.9 fl (7.5-11.1); MONO % 4.8 % (3.8-10.2); NEUT % 81.9 % (42.8-82.8); PLATELET COUNT 304 10^3/uL (134-434); RBC 2.98 M/mm3 (3.60-5.2); RDW 16.5 % (11.6-15.6); WHITE BLOOD COUNT 17.9 K/mm3 (4.0-10.0)
[2023-06-09] MEDS: ONDANSETRON 4 MG/2 ML VIAL IVPUSH PRN (17:02)
[2023-06-10] MEDS: PIPERACILLIN/TAZOB 4.5 GM 4.5 GM in DEXTROSE 5%-WATER 100 ML IVPB SCH (02:54)
[2023-06-10] MEDS: ONDANSETRON 4 MG/2 ML VIAL IVPUSH ONE (03:33)
[2023-06-10] MEDS: ACETAMINOPHEN 1000 MG/100 ML BAG IVPB ONE (07:58)
[2023-06-10] MEDS: PROCHLORPERAZINE INJECTION 10 MG/2 ML VIAL IVPB ONE (08:27)
[2023-06-10] MEDS ORDERED: FENTANYL PATCH WASTE TD PRN (08:39)
[2023-06-10 08:58] LABS: HEMATOCRIT 30.2 % (32.4-45.2); HEMOGLOBIN 9.5 GM/dL (10.7-15.3); MCH 27.2 pg (25.7-33.7); MCHC 31.6 g/dl (32.0-36.0); MEAN CELL VOLUME 86.1 fl (80-96); MEAN PLT VOLUME 8.4 fl (7.5-11.1); PLATELET COUNT 403 10^3/uL (134-434); WHITE BLOOD COUNT 22.7 K/mm3 (4.0-10.0)
[2023-06-10 09:29] LABS: POTASSIUM 3.9 mmol/L (3.5-5.1)
[2023-06-10 09:44] LABS: ALBUMIN 1.7 g/dl (3.4-5.0); BLOOD UREA NITROGEN 14.3 mg/dL (7-18); CALCIUM 7.5 mg/dL (8.5-10.1)
[2023-06-10 09:48] LABS: CREATININE 0.8 mg/dL (0.55-1.3)
[2023-06-10 09:49] LABS: BILIRUBIN,TOTAL 0.5 mg/dL (0.2-1); TOT PROT 6.8 g/dl (6.4-8.2)
[2023-06-10] MEDS: fentaNYL 25mcg/hr PATCH.TD72 TD SCH (10:50)
[2023-06-10] MEDS: SCOPOLAMINE HYDROBROMIDE 1 PATCH PATCH.TD72 TD SCH (10:51)
[2023-06-10] MEDS: TAMSULOSIN HCL 0.4 MG CAP PO ONE (11:01)
[2023-06-10 11:52] LABS: ANISOCYTOSIS 0; MACROCYTOSIS 0
[2023-06-10] MEDS ORDERED: FOSAPREPITANT DIMEGLUMINE 150 MG in SODIUM CHLORIDE 145 ML IVPB ONE (15:57)
[2023-06-10] MEDS: FOSAPREPITANT DIMEGLUMINE 150 MG in SODIUM CHLORIDE 145 ML IVPB ONE (18:12)
[2023-06-10] MEDS ORDERED: PIPERACILLIN/TAZOBACTAM 4.5 GM VIAL IVPB ONE (18:43)
[2023-06-11] MEDS ORDERED: PIPERACILLIN/TAZOBACTAM 4.5 GM VIAL IVPB ONE (02:00)
[2023-06-11] MEDS: TAMSULOSIN HCL 0.4 MG CAP PO SCH (09:41)
[2023-06-11 09:48] LABS: BASO % 0.4 % (0-2.0); EOS % 0.9 % (0-4.5); HEMATOCRIT 24.4 % (32.4-45.2); LYMPH % 8.8 % (8-40); MCH 27.7 pg (25.7-33.7); MCHC 32.8 g/dl (32.0-36.0); MEAN CELL VOLUME 84.5 fl (80-96); MEAN PLT VOLUME 7.6 fl (7.5-11.1); MONO % 4.2 % (3.8-10.2); NEUT % 85.7 % (42.8-82.8); PLATELET COUNT 381 10^3/uL (134-434); RBC 2.88 M/mm3 (3.60-5.2); RDW 15.9 % (11.6-15.6); WHITE BLOOD COUNT 16.6 K/mm3 (4.0-10.0)
[2023-06-11 10:07] LABS: POTASSIUM 3.5 mmol/L (3.5-5.1)
[2023-06-11 10:09] LABS: CALCIUM 7.2 mg/dL (8.5-10.1)
[2023-06-11 10:10] LABS: ALBUMIN 1.5 g/dl (3.4-5.0); BLOOD UREA NITROGEN 13.7 mg/dL (7-18); MAGNESIUM 2.3 mg/dL (1.8-2.4)
[2023-06-11 10:13] LABS: CREATININE 0.7 mg/dL (0.55-1.3)
[2023-06-11 10:14] LABS: TOT PROT 5.8 g/dl (6.4-8.2)
[2023-06-11 10:15] LABS: BILIRUBIN,TOTAL 0.3 mg/dL (0.2-1)
[2023-06-11] MEDS: LACTATED RINGERS SOLUTION 1,000 ML/1,000 ML INFUS.BAG IV SCH (13:09)
[2023-06-11] MEDS: AMINO ACIDS 4.25%/D5W 1,000 ML IV SCH (16:10)
[2023-06-11] MEDS ORDERED: DEXTROSE 50%-WATER 25 GM/50 ML DISP.SYRIN ONE (16:45)
[2023-06-11] MEDS: DEXTROSE 50%-WATER 25 GM/50 ML DISP.SYRIN IVPUSH ONE (17:30)
[2023-06-12] MEDS ORDERED: PIPERACILLIN/TAZOBACTAM 4.5 GM VIAL IVPB ONE (02:12)
[2023-06-12 09:45] LABS: BASO % 0.6 % (0-2.0); HEMATOCRIT 25.1 % (32.4-45.2); HEMOGLOBIN 7.9 GM/dL (10.7-15.3); LYMPH % 11.7 % (8-40); MCHC 31.6 g/dl (32.0-36.0); MEAN CELL VOLUME 85.5 fl (80-96); MEAN PLT VOLUME 7.7 fl (7.5-11.1); MONO % 4.9 % (3.8-10.2); NEUT % 81.8 % (42.8-82.8); PLATELET COUNT 418 10^3/uL (134-434); RBC 2.94 M/mm3 (3.60-5.2); RDW 15.6 % (11.6-15.6); WHITE BLOOD COUNT 15.7 K/mm3 (4.0-10.0)
[2023-06-12 10:03] LABS: POTASSIUM 3.3 mmol/L (3.5-5.1)
[2023-06-12 10:17] LABS: ALBUMIN 1.6 g/dl (3.4-5.0); BLOOD UREA NITROGEN 10.5 mg/dL (7-18)
[2023-06-12 10:18] LABS: MAGNESIUM 2.1 mg/dL (1.8-2.4)
[2023-06-12 10:20] LABS: CALCIUM 7.6 mg/dL (8.5-10.1); CREATININE 0.8 mg/dL (0.55-1.3)
[2023-06-12 10:21] LABS: BILIRUBIN,TOTAL 0.2 mg/dL (0.2-1); TOT PROT 6.2 g/dl (6.4-8.2)
[2023-06-12] MEDS ORDERED: oxyCODONE HCL 5 MG TABLET PO PRN (10:38)
[2023-06-12] MEDS: fentaNYL 25mcg/hr PATCH.TD72 TD SCH (11:08)
[2023-06-12] MEDS: fentaNYL 12mcg/hr PATCH.TD72 TD SCH (11:09)
[2023-06-12] MEDS: FENTANYL PATCH WASTE TD PRN (11:10)
[2023-06-12] MEDS: MULTIVITAMINS (DAILY MVI) TABLET (FP) PO SCH (11:56)
[2023-06-12] MEDS: POTASSIUM CHLORIDE ORAL LIQUID 20 MEQ/15 ML PO ONE (15:37)
[2023-06-13 08:51] LABS: BASO % 0.5 % (0-2.0); EOS % 0.7 % (0-4.5); HEMATOCRIT 25.4 % (32.4-45.2); HEMOGLOBIN 8.1 GM/dL (10.7-15.3); LYMPH % 14.4 % (8-40); MCH 26.9 pg (25.7-33.7); MCHC 31.7 g/dl (32.0-36.0); MEAN CELL VOLUME 84.8 fl (80-96); MEAN PLT VOLUME 7.4 fl (7.5-11.1); MONO % 5.6 % (3.8-10.2); NEUT % 78.8 % (42.8-82.8); PLATELET COUNT 427 10^3/uL (134-434); RDW 15.6 % (11.6-15.6); WHITE BLOOD COUNT 14.7 K/mm3 (4.0-10.0)
[2023-06-13 09:17] LABS: POTASSIUM 3.4 mmol/L (3.5-5.1)
[2023-06-13 10:27] LABS: ALBUMIN 1.6 g/dl (3.4-5.0); BLOOD UREA NITROGEN 6.6 mg/dL (7-18)
[2023-06-13] MEDS: ACETAMINOPHEN 325 MG TABLET (FP) PO PRN (10:28)
[2023-06-13 10:29] LABS: CREATININE 0.8 mg/dL (0.55-1.3); MAGNESIUM 1.8 mg/dL (1.8-2.4)
[2023-06-13] MEDS: PANTOPRAZOLE 40 MG TABLET PO SCH (10:30)
[2023-06-13 10:31] LABS: BILIRUBIN,TOTAL 0.2 mg/dL (0.2-1); TOT PROT 6.5 g/dl (6.4-8.2)
[2023-06-13] MEDS: POTASSIUM CHLORIDE ORAL LIQUID 20 MEQ/15 ML PO ONE (12:42)
[2023-06-14] MEDS ORDERED: INSULIN (NOVOLOG) ASPART 100 UNITS/ML 10ML VIAL ONE (21:55)
[2023-06-15] MEDS ORDERED: INSULIN (LEVEMIR) 100 UNITS/ML UNITS SQ ONE (08:39)
[2023-06-15 15:05] VITALS: RESP 18
[2023-06-15] MEDS: ENOXAPARIN NA (PORCINE) 40 MG/0.4 ML DISP.SYRIN SQ SCH (18:44)
[2023-06-15] MEDS ORDERED: INSULIN (NOVOLOG) ASPART 100 UNITS/ML 10ML VIAL ONE (21:15)
[2023-06-16] MEDS ORDERED: CEFTRIAXONE 2 GM-D5W BAG 2 GM/50 ML BAG IVPB SCH (14:45)
[2023-06-16] MEDS: CEFTRIAXONE 1 GM in DEXTROSE 5%-WATER - 50 ML IVPB SCH (18:19)
[2023-06-16] MEDS ORDERED: INSULIN (NOVOLOG) ASPART 100 UNITS/ML 10ML VIAL ONE (21:24)
[2023-06-17] MEDS ORDERED: INSULIN (NOVOLOG) ASPART 100 UNITS/ML 10ML VIAL ONE (05:42)
[2023-06-17 09:32] LABS: BASO % 0.6 % (0-2.0); EOS % 1.3 % (0-4.5); HEMATOCRIT 26.8 % (32.4-45.2); HEMOGLOBIN 8.7 GM/dL (10.7-15.3); LYMPH % 15.8 % (8-40); MCH 27.4 pg (25.7-33.7); MCHC 32.3 g/dl (32.0-36.0); MEAN PLT VOLUME 7.1 fl (7.5-11.1); MONO % 6.9 % (3.8-10.2); NEUT % 75.4 % (42.8-82.8); PLATELET COUNT 517 10^3/uL (134-434); RBC 3.15 M/mm3 (3.60-5.2); WHITE BLOOD COUNT 9.4 K/mm3 (4.0-10.0)
[2023-06-17 10:08] LABS: POTASSIUM 3.8 mmol/L (3.5-5.1)
[2023-06-17 10:11] LABS: ALBUMIN 1.9 g/dl (3.4-5.0); BLOOD UREA NITROGEN 7.4 mg/dL (7-18)
[2023-06-17 10:14] LABS: CREATININE 0.8 mg/dL (0.55-1.3)
[2023-06-17 10:16] LABS: BILIRUBIN,TOTAL 0.2 mg/dL (0.2-1); TOT PROT 7.1 g/dl (6.4-8.2)
[2023-06-17 10:22] VITALS: BP 138/74; PULSE 72; TEMP 97.9
[2023-06-17 10:24] LABS: CALCIUM 8.6 mg/dL (8.5-10.1)
[2023-06-17] MEDS: metroNIDAZOLE 250 MG TABLET PO SCH (15:39)
[2023-06-17] MEDS: ACETAMINOPHEN 1000 MG/100 ML BAG IVPB ONE (17:24)
== END 2023-06-17 21:12 | DRG 871 ==
LOC: JER 18:09 → JERBED 23:28 → JICU 06-04 06:56 → J8W 06-07 20:47
PROVIDERS: ADMIT Internal Medicine; ATTEND Nurse Practitioner Family
PROC: 02HV33Z Insertion of Infusion Device into Superior Vena Cava, Percutaneous Approach (ICD-10-PCS; principal; 2023-06-04)
PROC: B548ZZA Ultrasonography of Superior Vena Cava, Guidance (ICD-10-PCS; 2023-06-04)
DX: A41.9 Sepsis, unspecified organism (principal); G93.41 Metabolic encephalopathy; R65.21 Severe sepsis with septic shock; J18.9 Pneumonia, unspecified organism; N17.9 Acute kidney failure, unspecified; E87.20 Acidosis, unspecified; I24.89 Other forms of acute ischemic heart disease; N12 Tubulo-interstitial nephritis, not specified as acute or chronic; Z79.4 Long term (current) use of insulin; E11.65 Type 2 diabetes mellitus with hyperglycemia; E87.6 Hypokalemia; Z95.0 Presence of cardiac pacemaker; E11.40 Type 2 diabetes mellitus with diabetic neuropathy, unspecified; E83.51 Hypocalcemia
CPT/HCPCS: 0241U-QW; 36415; 71045-TC-FY; 71250-TC; 74176-TC; 74177-TC; 80048; 80053; 81003; 82010; 82803; 82947; 82962; 83036; 83605; 83690; 83735; 83930; 84100; 84484; 85025; 85610; 85730; 86140; 86850; 86900; 86901; 87040; 87086; 87186; 87324; 87449; 87635; 93005; 93010; 94010; 94761; 97116-GP; 97161-GP; 99285-25; J0131; J1453; J1644; Q9967

== ENCOUNTER 2023-08-13 19:54 | Inpatient (IN) | payer OTHER ==
[2023-08-13] MEDS ORDERED: morphine CARPU-JECT 4 MG/1 ML DISP.SYRIN IVPUSH ONE (20:09)
[2023-08-13] MEDS ORDERED: ACETAMINOPHEN INJECTION 100 ML IVPB ONE (20:26)
[2023-08-13] MEDS: ACETAMINOPHEN 1000 MG/100 ML BAG IVPB ONE (20:46)
[2023-08-13 21:26] LABS: HEMATOCRIT 37.4 % (32.4-45.2); HEMOGLOBIN 12.2 G/dL (10.7-15.3); MCH 26.8 pg (25.7-33.7); MCHC 32.6 g/dl (32.0-36.0); MEAN CELL VOLUME 82.1 fl (80-96); MEAN PLT VOLUME 8.2 fl (7.5-11.1); PLATELET COUNT 322.9 10^3/uL (134-434); RBC 4.55 10^6/uL (3.60-5.2); RDW 15.5 % (11.6-15.6); WHITE BLOOD COUNT 9.8 10^3/uL (4.0-10.8)
[2023-08-13 21:36] LABS: ALBUMIN 4.4 g/dl (3.4-5.0); BILIRUBIN,TOTAL 0.3 mg/dl (0.2-1); CALCIUM 10.1 mg/dl (8.5-10.1); CREATININE 0.8 mg/dl (0.6-1.3); POTASSIUM 4.2 mmol/L (3.5-5.1); TOT PROT 9.6 g/dl (6.4-8.2)
[2023-08-13 22:44] LABS: ANISOCYTOSIS 1+; PLATELET ESTIMATE ADEQUATE
[2023-08-14] MEDS ORDERED: PIPERACILLIN/TAZOBACTAM 4.5 GM VIAL IVPB ONE (00:54)
[2023-08-14] MEDS: PIPERACILLIN/TAZOB 4.5 GM 4.5 GM/100 ML BAG IVPB ONE (01:02)
[2023-08-14] MEDS ORDERED: PIPERACILLIN/TAZOBACTAM 3.375 GM VIAL IVPB ONE (06:56)
[2023-08-14 07:20] LABS: BASO % 0.7 % (0-2.0); EOS % 3.4 % (0-4.5); HEMATOCRIT 31.7 % (32.4-45.2); HEMOGLOBIN 10.3 GM/dL (10.7-15.3); LYMPH % 42.2 % (8-40); MCH 26.5 pg (25.7-33.7); MCHC 32.6 g/dl (32.0-36.0); MEAN CELL VOLUME 81.2 fl (80-96); MEAN PLT VOLUME 7.4 fl (7.5-11.1); MONO % 5.5 % (3.8-10.2); NEUT % 48.2 % (42.8-82.8); PLATELET COUNT 305 10^3/uL (134-434); RBC 3.91 M/mm3 (3.60-5.2); WHITE BLOOD COUNT 8.6 K/mm3 (4.0-10.0)
[2023-08-14 07:32] LABS: INR 0.98 (0.83-1.09); PROTHROMBIN TIME (PATIENT) 11.4 SEC (9.7-13.0)
[2023-08-14 07:35] LABS: POTASSIUM 4.2 mmol/L (3.5-5.1)
[2023-08-14 07:35] LABS: ACTIVATED PTT 26.1 SECONDS (25.2-36.5)
[2023-08-14 07:37] LABS: BLOOD UREA NITROGEN 14.2 mg/dL (7-18); CALCIUM 9.1 mg/dL (8.5-10.1)
[2023-08-14 07:41] LABS: CREATININE 0.8 mg/dL (0.55-1.3)
[2023-08-14] MEDS ORDERED: HYDROmorphone HCL/PF 1 MG/ML VIAL IVPUSH PRN (07:46)
[2023-08-14] MEDS: PIPERACILLIN/TAZOB 3.375 GM 3.375 GM in DEXTROSE 5%-WATER - 50 ML IVPB SCH ×2 (07:49→17:45)
[2023-08-14] MEDS: INSULIN ASPART SLIDING SCALE (NOVOLOG) 1 VIAL SQ SCH ×3 (08:02→17:03)
[2023-08-14] MEDS ORDERED: INSULIN REGULAR HUMAN 100 UNITS/ML *VIAL ONE (08:07)
[2023-08-14] MEDS ORDERED: FENTANYL TD SCH (10:15)
[2023-08-14] MEDS ORDERED: FENTANYL PATCH WASTE TD PRN (10:16)
[2023-08-14] MEDS: fentaNYL 12mcg/hr PATCH.TD72 TD SCH (10:21)
[2023-08-14] MEDS: GABAPENTIN 300 MG CAPSULE PO SCH (10:21)
[2023-08-14] MEDS ORDERED: DEXTROSE 50%-WATER 25 GM/50 ML DISP.SYRIN IVPUSH PRN (10:45)
[2023-08-14] MEDS ORDERED: INSULIN ASPART SLIDING SCALE (NOVOLOG) 1 VIAL SQ ONE ×2 (11:04→17:52)
[2023-08-14] MEDS: INSULIN (NOVOLOG) ASPART 100 UNITS/ML 10ML VIAL SQ SCH (11:07)
[2023-08-14] MEDS: LACTATED RINGERS SOLUTION 1,000 ML/1,000 ML INFUS.BAG IV SCH (11:07)
[2023-08-14] MEDS: ACETAMINOPHEN 1000 MG/100 ML BAG IVPB PRN (11:07)
[2023-08-14 11:26] LABS: MAGNESIUM 1.9 mg/dL (1.8-2.4)
[2023-08-14] MEDS ORDERED: MIDAZOLAM HCL 2 MG/2 ML SINGLE DOSE VIAL ONE (11:27)
[2023-08-14] MEDS ORDERED: FENTANYL CITRATE/PF 50 MCG/ML VIAL ONE ×2 (11:28)
[2023-08-14] MEDS ORDERED: INSULIN ASPART SLIDING SCALE (NOVOLOG) 1 VIAL SQ SCH (12:00)
[2023-08-14] MEDS: SODIUM CHLORIDE 500 ML IV SCH (12:40)
[2023-08-14] MEDS: MIDAZOLAM HCL 2 MG/2 ML SINGLE DOSE VIAL IVPUSH ONE ×2 (12:43→12:55)
[2023-08-14] MEDS: FENTANYL CITRATE/PF 50 MCG/ML VIAL IVPUSH ONE ×2 (12:43→12:55)
[2023-08-14] MEDS: HYDROmorphone HCl 2 MG/ML VIAL IVPB PRN (16:56)
[2023-08-14] MEDS: ONDANSETRON 4 MG/2 ML VIAL IVPUSH PRN (17:48)
[2023-08-14] MEDS: KETOROLAC TROMETHAMINE 30 MG/1 ML VIAL IVPUSH SCH (18:02)
[2023-08-14] MEDS ORDERED: INSULIN (LEVEMIR) 100 UNITS/ML UNITS SQ SCH ×2 (22:00)
[2023-08-14] MEDS: INSULIN (LEVEMIR) 100 UNITS/ML UNITS SQ SCH (22:48)
[2023-08-15] MEDS: TRIMETHOBENZAMIDE HCL 200MG/2ML INJ IM ONE ×2 (06:51→08:33)
[2023-08-15 08:02] LABS: BASO % 0.7 % (0-2.0); EOS % 2.7 % (0-4.5); HEMOGLOBIN 11.1 GM/dL (10.7-15.3); LYMPH % 28.6 % (8-40); MCH 26.3 pg (25.7-33.7); MCHC 32.6 g/dl (32.0-36.0); MEAN CELL VOLUME 80.8 fl (80-96); MEAN PLT VOLUME 7.2 fl (7.5-11.1); PLATELET COUNT 305 10^3/uL (134-434); RDW 15.3 % (11.6-15.6); WHITE BLOOD COUNT 6.9 K/mm3 (4.0-10.0)
[2023-08-15 08:21] LABS: POTASSIUM 4.2 mmol/L (3.5-5.1)
[2023-08-15 08:24] LABS: ALBUMIN 2.9 g/dl (3.4-5.0); BLOOD UREA NITROGEN 15.4 mg/dL (7-18); CALCIUM 9.1 mg/dL (8.5-10.1)
[2023-08-15 08:27] LABS: CREATININE 0.9 mg/dL (0.55-1.3); PHOSPHOROUS 5.4 mg/dL (2.5-4.9)
[2023-08-15 08:29] LABS: BILIRUBIN,TOTAL 0.4 mg/dL (0.2-1)
[2023-08-15] MEDS: PROCHLORPERAZINE INJECTION 10 MG/2 ML VIAL IVPB ONE (09:56)
[2023-08-15] MEDS ORDERED: INSULIN ASPART SLIDING SCALE (NOVOLOG) 1 VIAL SQ ONE ×2 (10:35→21:25)
[2023-08-15] MEDS: fentaNYL 25mcg/hr PATCH.TD72 TD SCH (13:30)
[2023-08-15] MEDS ORDERED: PIPERACILLIN/TAZOB 3.375 GM 3.375 GM in DEXTROSE 5%-WATER - 50 ML IVPB SCH (16:00)
[2023-08-16] MEDS: ASPIRIN COATED 81 MG TABLET.EC PO SCH (09:18)
[2023-08-16] MEDS: PANTOPRAZOLE 40 MG TABLET PO SCH (09:18)
[2023-08-16 10:05] LABS: HEMATOCRIT 32.9 % (32.4-45.2); HEMOGLOBIN 10.9 GM/dL (10.7-15.3); MCH 26.7 pg (25.7-33.7); MCHC 33.1 g/dl (32.0-36.0); MEAN CELL VOLUME 80.4 fl (80-96); PLATELET COUNT 319 10^3/uL (134-434); RDW 15.4 % (11.6-15.6); WHITE BLOOD COUNT 6.6 K/mm3 (4.0-10.0)
[2023-08-16 10:10] LABS: POTASSIUM 3.7 mmol/L (3.5-5.1)
[2023-08-16] MEDS: PROCHLORPERAZINE INJECTION 10 MG/2 ML VIAL IVPB ONE (10:10)
[2023-08-16 10:23] LABS: CREATININE 0.7 mg/dL (0.55-1.3); PHOSPHOROUS 3.8 mg/dL (2.5-4.9)
[2023-08-16 10:24] LABS: BILIRUBIN,TOTAL 0.4 mg/dL (0.2-1); BLOOD UREA NITROGEN 9.1 mg/dL (7-18)
[2023-08-16 10:25] LABS: CALCIUM 9.1 mg/dL (8.5-10.1); MAGNESIUM 1.9 mg/dL (1.8-2.4)
[2023-08-16] MEDS ORDERED: INSULIN ASPART SLIDING SCALE (NOVOLOG) 1 VIAL SQ ONE (10:37)
[2023-08-16] MEDS: SUCRALFATE 1 GM/10 ML UNIT DOSE CUPS PO SCH (10:43)
[2023-08-16] MEDS ORDERED: PANTOPRAZOLE SODIUM 40 MG VIAL IVPUSH SCH ×2 (10:45→11:00)
[2023-08-16] MEDS: PANTOPRAZOLE SODIUM 40 MG VIAL IVPUSH SCH (13:40)
[2023-08-16] MEDS: METOCLOPRAMIDE HCL 10 MG TABLET (FP) PO SCH (18:33)
[2023-08-16] MEDS: ROSUVASTATIN CA 20 MG TABLET PO SCH (21:26)
[2023-08-17] MEDS: amLODIPine BESYLATE 5 MG TABLET (FP) PO ONE (06:09)
[2023-08-17] MEDS: LIDOCAINE 4% PATCH TP ONE (06:10)
[2023-08-17 09:10] LABS: BASO % 0.9 % (0-2.0); EOS % 0.9 % (0-4.5); HEMATOCRIT 34.8 % (32.4-45.2); HEMOGLOBIN 11.3 GM/dL (10.7-15.3); LYMPH % 32.4 % (8-40); MCH 26.5 pg (25.7-33.7); MCHC 32.6 g/dl (32.0-36.0); MEAN CELL VOLUME 81.5 fl (80-96); MEAN PLT VOLUME 6.8 fl (7.5-11.1); MONO % 4.3 % (3.8-10.2); NEUT % 61.5 % (42.8-82.8); PLATELET COUNT 324 10^3/uL (134-434); RBC 4.27 M/mm3 (3.60-5.2); RDW 15.4 % (11.6-15.6); WHITE BLOOD COUNT 6.3 K/mm3 (4.0-10.0)
[2023-08-17 09:28] LABS: POTASSIUM 3.7 mmol/L (3.5-5.1)
[2023-08-17 09:33] LABS: CALCIUM 9.5 mg/dL (8.5-10.1)
[2023-08-17 09:34] LABS: ALBUMIN 3.2 g/dl (3.4-5.0); BLOOD UREA NITROGEN 9.6 mg/dL (7-18); MAGNESIUM 2.1 mg/dL (1.8-2.4)
[2023-08-17 09:36] LABS: CREATININE 0.7 mg/dL (0.55-1.3)
[2023-08-17 09:37] LABS: BILIRUBIN,TOTAL 0.4 mg/dL (0.2-1); PHOSPHOROUS 4.4 mg/dL (2.5-4.9)
[2023-08-17 09:38] LABS: TOT PROT 8.4 g/dl (6.4-8.2)
[2023-08-17] MEDS ORDERED: LISINOPRIL 5 MG TABLET PO SCH (10:00)
[2023-08-17] MEDS: LACTATED RINGERS SOLUTION 1,000 ML/1,000 ML INFUS.BAG IV SCH (12:44)
[2023-08-17] MEDS: COSYNTROPIN 0.25 MG VIAL IVPUSH ONE (17:26)
[2023-08-17] MEDS ORDERED: VANCOMYCIN 1 GM PREMIX - 1 GM/200 ML BAG IVPB ONE (18:00)
[2023-08-17] MEDS: VANCOMYCIN/WATER FOR INJ (PEG) 1,000 MG/200 ML BAG IVPB SCH (18:36)
[2023-08-17] MEDS: LIDOCAINE PATCH REMOVAL MC SCH (21:37)
[2023-08-18 09:11] LABS: HEMATOCRIT 33.1 % (32.4-45.2); HEMOGLOBIN 10.7 GM/dL (10.7-15.3); MCH 26.3 pg (25.7-33.7); MCHC 32.2 g/dl (32.0-36.0); MEAN CELL VOLUME 81.7 fl (80-96); MEAN PLT VOLUME 6.9 fl (7.5-11.1); PLATELET COUNT 299 10^3/uL (134-434); RBC 4.05 M/mm3 (3.60-5.2); RDW 15.6 % (11.6-15.6); WHITE BLOOD COUNT 7.2 K/mm3 (4.0-10.0)
[2023-08-18 09:16] LABS: POTASSIUM 3.3 mmol/L (3.5-5.1)
[2023-08-18 09:28] LABS: CALCIUM 8.9 mg/dL (8.5-10.1)
[2023-08-18] MEDS: FLUDROCORTISONE ACETATE 0.1 MG TABLET (FP) PO SCH (09:28)
[2023-08-18 09:32] LABS: CREATININE 0.7 mg/dL (0.55-1.3)
[2023-08-18] MEDS: FENTANYL PATCH WASTE TD PRN (12:47)
[2023-08-18] MEDS: LACTATED RINGERS SOLUTION 1,000 ML/1,000 ML INFUS.BAG IV SCH (16:17)
[2023-08-19 09:01] LABS: BASO % 0.8 % (0-2.0); EOS % 2.3 % (0-4.5); HEMATOCRIT 34.5 % (32.4-45.2); HEMOGLOBIN 11.1 GM/dL (10.7-15.3); LYMPH % 33.3 % (8-40); MCH 26.4 pg (25.7-33.7); MCHC 32.1 g/dl (32.0-36.0); MEAN CELL VOLUME 82.4 fl (80-96); MONO % 6.6 % (3.8-10.2); PLATELET COUNT 297 10^3/uL (134-434); RBC 4.19 M/mm3 (3.60-5.2); RDW 15.9 % (11.6-15.6); WHITE BLOOD COUNT 7.4 K/mm3 (4.0-10.0)
[2023-08-19 09:19] LABS: POTASSIUM 3.2 mmol/L (3.5-5.1)
[2023-08-19] MEDS: MULTIVITAMINS (DAILY MVI) TABLET (FP) PO SCH (09:20)
[2023-08-19] MEDS: ASCORBIC ACID 250 MG TABLET (FP) PO SCH (09:20)
[2023-08-19 09:21] LABS: CALCIUM 9.4 mg/dL (8.5-10.1)
[2023-08-19 09:22] LABS: ALBUMIN 3.2 g/dl (3.4-5.0); BLOOD UREA NITROGEN 8.2 mg/dL (7-18)
[2023-08-19 09:25] LABS: CREATININE 0.8 mg/dL (0.55-1.3)
[2023-08-19 09:26] LABS: TOT PROT 8.2 g/dl (6.4-8.2)
[2023-08-19] MEDS: ENOXAPARIN NA (PORCINE) 40 MG/0.4 ML DISP.SYRIN SQ SCH (09:26)
[2023-08-19 09:27] LABS: BILIRUBIN,TOTAL 0.5 mg/dL (0.2-1)
[2023-08-19] MEDS: POTASSIUM CHLORIDE TABS 20 MEQ TABLET.ER (FP) PO ONE (14:09)
[2023-08-19] MEDS: KCL 10 MEQ IVPB 10 MEQ/100 ML INFUS.BAG IVPB SCH (14:10)
[2023-08-20 10:08] LABS: HEMATOCRIT 37.1 % (32.4-45.2); HEMOGLOBIN 11.8 GM/dL (10.7-15.3); MCH 26.3 pg (25.7-33.7); MCHC 31.8 g/dl (32.0-36.0); MEAN CELL VOLUME 82.8 fl (80-96); MEAN PLT VOLUME 7.3 fl (7.5-11.1); PLATELET COUNT 326 10^3/uL (134-434); RBC 4.48 M/mm3 (3.60-5.2); RDW 15.6 % (11.6-15.6); WHITE BLOOD COUNT 7.7 K/mm3 (4.0-10.0)
[2023-08-20 10:30] LABS: POTASSIUM 3.3 mmol/L (3.5-5.1)
[2023-08-20] MEDS: CEFTRIAXONE 2 GM in SODIUM CHLORIDE 100 ML IVPB SCH (10:44)
[2023-08-20 10:45] LABS: ALBUMIN 3.4 g/dl (3.4-5.0); CALCIUM 9.5 mg/dL (8.5-10.1)
[2023-08-20 10:46] LABS: BLOOD UREA NITROGEN 7.4 mg/dL (7-18); MAGNESIUM 1.9 mg/dL (1.8-2.4)
[2023-08-20 10:48] LABS: PHOSPHOROUS 3.6 mg/dL (2.5-4.9)
[2023-08-20 10:49] LABS: CREATININE 0.8 mg/dL (0.55-1.3)
[2023-08-20 10:50] LABS: BILIRUBIN,TOTAL 0.4 mg/dL (0.2-1); TOT PROT 8.4 g/dl (6.4-8.2)
[2023-08-20] MEDS ORDERED: INSULIN ASPART SLIDING SCALE (NOVOLOG) 1 VIAL SQ ONE ×2 (11:21→20:01)
[2023-08-20] MEDS: POTASSIUM CHLORIDE TABS 20 MEQ TABLET.ER (FP) PO ONE ×2 (11:25→11:32)
[2023-08-20] MEDS: VANCOMYCIN ORAL SOLUTION 125 MG/2.5 ML PO SCH (12:18)
[2023-08-20 14:20] VITALS: BMI 21.1
[2023-08-20] MEDS ORDERED: ACETAMINOPHEN 325 MG TABLET (FP) PO PRN ×2 (17:10)
[2023-08-21 10:17] LABS: HEMATOCRIT 35.2 % (32.4-45.2); HEMOGLOBIN 11.5 GM/dL (10.7-15.3); MCH 26.9 pg (25.7-33.7); MCHC 32.6 g/dl (32.0-36.0); MEAN CELL VOLUME 82.4 fl (80-96); MEAN PLT VOLUME 7.4 fl (7.5-11.1); PLATELET COUNT 327 10^3/uL (134-434); RBC 4.27 M/mm3 (3.60-5.2); RDW 15.6 % (11.6-15.6)
[2023-08-21 10:40] LABS: ALBUMIN 3.2 g/dl (3.4-5.0); BLOOD UREA NITROGEN 8.9 mg/dL (7-18); PHOSPHOROUS 3.4 mg/dL (2.5-4.9)
[2023-08-21 10:41] LABS: BILIRUBIN,TOTAL 0.2 mg/dL (0.2-1); TOT PROT 8.2 g/dl (6.4-8.2)
[2023-08-21 10:42] LABS: CALCIUM 9.5 mg/dL (8.5-10.1)
[2023-08-21 10:43] LABS: CREATININE 0.7 mg/dL (0.55-1.3)
[2023-08-21] MEDS: POTASSIUM CHLORIDE TABS 20 MEQ TABLET.ER (FP) PO ONE (12:50)
[2023-08-21] MEDS: POTASSIUM PHOSPHATE 30 MM in SODIUM CHLORIDE 500 ML IVPB ONE (14:11)
[2023-08-22 08:45] LABS: HEMATOCRIT 33.5 % (32.4-45.2); HEMOGLOBIN 11.1 GM/dL (10.7-15.3); MCH 27.1 pg (25.7-33.7); MCHC 33.2 g/dl (32.0-36.0); MEAN CELL VOLUME 81.5 fl (80-96); MEAN PLT VOLUME 7.5 fl (7.5-11.1); PLATELET COUNT 301 10^3/uL (134-434); RBC 4.11 M/mm3 (3.60-5.2); RDW 16.3 % (11.6-15.6); WHITE BLOOD COUNT 8.6 K/mm3 (4.0-10.0)
[2023-08-22 08:51] LABS: POTASSIUM 3.7 mmol/L (3.5-5.1)
[2023-08-22 08:53] LABS: CALCIUM 9.1 mg/dL (8.5-10.1)
[2023-08-22 08:54] LABS: BLOOD UREA NITROGEN 7.6 mg/dL (7-18); MAGNESIUM 1.9 mg/dL (1.8-2.4)
[2023-08-22 08:57] LABS: CREATININE 0.8 mg/dL (0.55-1.3); PHOSPHOROUS 3.8 mg/dL (2.5-4.9)
[2023-08-22 08:58] LABS: BILIRUBIN,TOTAL 0.2 mg/dL (0.2-1); TOT PROT 7.6 g/dl (6.4-8.2)
[2023-08-23 10:28] LABS: HEMATOCRIT 35.5 % (32.4-45.2); HEMOGLOBIN 11.8 GM/dL (10.7-15.3); MCH 27.1 pg (25.7-33.7); MCHC 33.1 g/dl (32.0-36.0); MEAN CELL VOLUME 81.9 fl (80-96); MEAN PLT VOLUME 7.4 fl (7.5-11.1); PLATELET COUNT 332 10^3/uL (134-434); RBC 4.33 M/mm3 (3.60-5.2); RDW 15.8 % (11.6-15.6); WHITE BLOOD COUNT 8.8 K/mm3 (4.0-10.0)
[2023-08-23 10:48] LABS: POTASSIUM 3.9 mmol/L (3.5-5.1)
[2023-08-23 10:53] LABS: CALCIUM 9.5 mg/dL (8.5-10.1)
[2023-08-23 10:54] LABS: ALBUMIN 3.3 g/dl (3.4-5.0); BLOOD UREA NITROGEN 9.7 mg/dL (7-18); MAGNESIUM 2.1 mg/dL (1.8-2.4)
[2023-08-23 10:56] LABS: CREATININE 0.8 mg/dL (0.55-1.3); PHOSPHOROUS 3.1 mg/dL (2.5-4.9)
[2023-08-23 10:58] LABS: BILIRUBIN,TOTAL 0.2 mg/dL (0.2-1); TOT PROT 8.2 g/dl (6.4-8.2)
[2023-08-23 20:39] VITALS: RESP 18
[2023-08-24 06:55] VITALS: BP 138/74; PULSE 83; TEMP 99.2
== END 2023-08-24 10:45 | disposition home or self-care (01) | DRG 689 ==
LOC: FER 19:54 → J6S 08-14 08:52
PROVIDERS: ADMIT Internal Medicine; ATTEND Internal Medicine
PROC: 0T903ZZ Drainage of Right Kidney, Percutaneous Approach (ICD-10-PCS; principal; 2023-08-14)
DX: N15.1 Renal and perinephric abscess (principal); E43 Unspecified severe protein-calorie malnutrition; S22.32XA Fracture of one rib, left side, initial encounter for closed fracture; E10.42 Type 1 diabetes mellitus with diabetic polyneuropathy; Z95.0 Presence of cardiac pacemaker; E10.65 Type 1 diabetes mellitus with hyperglycemia; I95.1 Orthostatic hypotension; N12 Tubulo-interstitial nephritis, not specified as acute or chronic; R19.7 Diarrhea, unspecified; W19.XXXA Unspecified fall, initial encounter; Y93.89 Activity, other specified; Y92.009 Unspecified place in unspecified non-institutional (private) residence as the place of occurrence of the external cause; Y99.8 Other external cause status
CPT/HCPCS: 0241U-QW; 36415; 50390; 70450-TC; 71250-TC; 72125-TC; 74177-TC; 76705-TC; 80048; 80053; 81003; 81015; 82024; 82105; 82533; 82962; 83036; 83735; 84100; 84484; 85025; 85027; 85610; 85730; 87070; 87075; 87086; 87102; 87116; 87186; 87205; 87206; 87210; 87324; 87449; 87493; 93005; 97116-GP; 97162-GP; 99285-25; G0480; J0131; J0834; Q9967

== ENCOUNTER 2023-09-11 11:11 | Inpatient (IN) | payer OTHER ==
[2023-09-11] MEDS: ONDANSETRON *ODT* 4 MG TABLET SL ONE (11:59)
[2023-09-11 15:15] LABS: BASO % 0.6 % (0-2.0); EOS % 1.8 % (0-4.5); HEMATOCRIT 38.1 % (32.4-45.2); HEMOGLOBIN 12.4 GM/dL (10.7-15.3); LYMPH % 31.5 % (8-40); MCH 27.1 pg (25.7-33.7); MCHC 32.5 g/dl (32.0-36.0); MEAN CELL VOLUME 83.5 fl (80-96); MEAN PLT VOLUME 7.3 fl (7.5-11.1); MONO % 5.4 % (3.8-10.2); NEUT % 60.7 % (42.8-82.8); PLATELET COUNT 268 10^3/uL (134-434); RBC 4.56 M/mm3 (3.60-5.2); RDW 16.5 % (11.6-15.6); WHITE BLOOD COUNT 9.4 K/mm3 (4.0-10.0)
[2023-09-11 15:31] LABS: CHLORIDE 110 mmol/L (98-107); POTASSIUM 4.4 mmol/L (3.5-5.1); SODIUM 137 mmol/L (136-145)
[2023-09-11 15:34] LABS: ALBUMIN 3.3 g/dl (3.4-5.0); ANION GAP 12 mmol/L (4-13); BLOOD UREA NITROGEN 21.6 mg/dL (7-18); CO2 15 mmol/L (21-32); GLUCOSE,RANDOM 165 mg/dL (74-106)
[2023-09-11 15:37] LABS: CREATININE 0.8 mg/dL (0.55-1.3); SGOT/AST 22 U/L (15-37); SGPT/ALT 28 U/L (13-61)
[2023-09-11 15:38] LABS: TOT PROT 8.4 g/dl (6.4-8.2)
[2023-09-11 15:39] LABS: BILIRUBIN,TOTAL 0.2 mg/dL (0.2-1)
[2023-09-11 15:40] LABS: ALK PHOS 85 U/L (45-117)
[2023-09-11 15:44] LABS: CALCIUM < 5.0 mg/dL (8.5-10.1)
[2023-09-11 18:04] LABS: PHOSPHOROUS 3.9 mg/dL (2.5-4.9)
[2023-09-11 18:15] LABS: POTASSIUM 4.1 mmol/L (3.5-5.1)
[2023-09-11 18:17] LABS: BLOOD UREA NITROGEN 20.8 mg/dL (7-18)
[2023-09-11 18:20] LABS: CREATININE 0.8 mg/dL (0.55-1.3)
[2023-09-11 18:23] LABS: CALCIUM 9.3 mg/dL (8.5-10.1)
[2023-09-11 19:47] LABS: EPI CELLS 2 /uL (0-25.1); HYALINE CASTS 1 /uL (0-3.1); PH,URINE 5.5 (5.0-8.0); URINE APPEARANCE CLOUDY; URINE BACTERIA >9,000 /uL (0-1359); URINE BILIRUBIN NEGATIVE (NEGATIVE); URINE COLOR YELLOW; URINE GLUCOSE (UA) NEGATIVE (NEGATIVE); URINE KETONE NEGATIVE (NEGATIVE); URINE LEUK ESTERASE 3+ (NEGATIVE); URINE NITRITE NEGATIVE (NEGATIVE); URINE PROTEIN 1+ (NEGATIVE); URINE RBC 41 /uL (0-23.9); URINE UROBILINOGEN 0.2 mg/dL (0.2-1.0); URINE WBC 2083 /uL (0-25.8)
[2023-09-11] MEDS ORDERED: ACETAMINOPHEN INJECTION 100 ML IVPB ONE (19:53)
[2023-09-11] MEDS: ACETAMINOPHEN 1000 MG/100 ML BAG IVPB ONE (20:02)
[2023-09-11] MEDS ORDERED: CEFTRIAXONE 1,000 MG in DEXTROSE 5%-WATER - 50 ML IVPB ONE (20:16)
[2023-09-11] MEDS ORDERED: VANCOMYCIN 1,000 MG in DEXTROSE 5%-WATER - 250 ML IVPB ONE (20:17)
[2023-09-11] MEDS: CEFTRIAXONE 1 GM in DEXTROSE 5%-WATER - 50 ML IVPB ONE (21:36)
[2023-09-11 21:51] VITALS: BMI 20.6
[2023-09-11] MEDS: VANCOMYCIN/WATER FOR INJ (PEG) 1,000 MG/200 ML BAG IVPB ONE (22:19)
[2023-09-12] MEDS ORDERED: ACETAMINOPHEN 1000 MG/100 ML BAG IVPB PRN (03:15)
[2023-09-12] MEDS: INSULIN (LEVEMIR) 100 UNITS/ML UNITS SQ ONE (03:50)
[2023-09-12] MEDS: ONDANSETRON 4 MG/2 ML VIAL IVPUSH PRN (06:28)
[2023-09-12] MEDS: GABAPENTIN 300 MG CAPSULE PO SCH (06:33)
[2023-09-12] MEDS: INSULIN (LEVEMIR) 100 UNITS/ML UNITS SQ SCH (06:34)
[2023-09-12] MEDS: INSULIN ASPART SLIDING SCALE (NOVOLOG) 1 VIAL SQ SCH (06:35)
[2023-09-12] MEDS: INSULIN (NOVOLOG) ASPART 100 UNITS/ML 10ML VIAL SQ SCH (06:35)
[2023-09-12 07:50] LABS: POTASSIUM 4.2 mmol/L (3.5-5.1)
[2023-09-12 08:01] LABS: ALBUMIN 3.3 g/dl (3.4-5.0); BLOOD UREA NITROGEN 21.3 mg/dL (7-18); CALCIUM 9.5 mg/dL (8.5-10.1); MAGNESIUM 2.3 mg/dL (1.8-2.4)
[2023-09-12 08:04] LABS: CREATININE 0.9 mg/dL (0.55-1.3); PHOSPHOROUS 4.6 mg/dL (2.5-4.9)
[2023-09-12 08:05] LABS: BILIRUBIN,TOTAL 0.4 mg/dL (0.2-1); TOT PROT 8.4 g/dl (6.4-8.2)
[2023-09-12] MEDS: SODIUM CHLORIDE 1,000 ML IV SCH (08:51)
[2023-09-12 09:02] LABS: HEMATOCRIT 37.3 % (32.4-45.2); MCH 26.8 pg (25.7-33.7); MCHC 32.1 g/dl (32.0-36.0); MEAN CELL VOLUME 83.3 fl (80-96); PLATELET COUNT 288 10^3/uL (134-434); RBC 4.48 M/mm3 (3.60-5.2)
[2023-09-12 09:03] LABS: MEAN PLT VOLUME 7.7 fl (7.5-11.1)
[2023-09-12] MEDS: PIPERACILLIN/TAZOB 3.375 GM 3.375 GM in DEXTROSE 5%-WATER - 50 ML IVPB SCH ×2 (09:10→18:34)
[2023-09-12] MEDS: LIDOCAINE 5% TOPICAL PATCH TP SCH (13:01)
[2023-09-12] MEDS: FLUDROCORTISONE ACETATE 0.1 MG TABLET (FP) PO SCH (16:44)
[2023-09-12] MEDS: ENOXAPARIN NA (PORCINE) 40 MG/0.4 ML DISP.SYRIN SQ SCH (21:09)
[2023-09-12] MEDS: LIDOCAINE PATCH REMOVAL MC SCH (21:17)
[2023-09-12] MEDS: ROSUVASTATIN CA 40 MG TABLET PO SCH (21:21)
[2023-09-13] MEDS ORDERED: INSULIN (NOVOLOG) ASPART 100 UNITS/ML 10ML VIAL ONE (06:25)
[2023-09-13 08:12] LABS: BASO % 0.5 % (0-2.0); EOS % 4.2 % (0-4.5); HEMATOCRIT 34.3 % (32.4-45.2); HEMOGLOBIN 11.3 GM/dL (10.7-15.3); LYMPH % 25.5 % (8-40); MCH 27.2 pg (25.7-33.7); MCHC 32.8 g/dl (32.0-36.0); MEAN CELL VOLUME 82.9 fl (80-96); MEAN PLT VOLUME 7.8 fl (7.5-11.1); MONO % 7.8 % (3.8-10.2); PLATELET COUNT 260 10^3/uL (134-434); RBC 4.14 M/mm3 (3.60-5.2); WHITE BLOOD COUNT 6.2 K/mm3 (4.0-10.0)
[2023-09-13 08:23] LABS: POTASSIUM 4.2 mmol/L (3.5-5.1)
[2023-09-13 08:30] LABS: ALBUMIN 2.8 g/dl (3.4-5.0); BLOOD UREA NITROGEN 24.3 mg/dL (7-18)
[2023-09-13 08:34] LABS: BILIRUBIN,TOTAL 0.4 mg/dL (0.2-1); TOT PROT 7.2 g/dl (6.4-8.2)
[2023-09-13] MEDS ORDERED: PIPERACILLIN/TAZOB 3.375 GM 3.375 GM in DEXTROSE 5%-WATER - 50 ML IVPB SCH (10:00)
[2023-09-13] MEDS ORDERED: CEFTRIAXONE 1 GM in DEXTROSE 5%-WATER - 50 ML IVPB SCH (12:45)
[2023-09-13] MEDS: CEFTRIAXONE 1 GM in DEXTROSE 5%-WATER - 50 ML IVPB SCH (17:10)
[2023-09-13 22:15] VITALS: TEMP 98.8
[2023-09-14 07:08] LABS: BASO % 0.7 % (0-2.0); EOS % 5.9 % (0-4.5); HEMATOCRIT 34.4 % (32.4-45.2); HEMOGLOBIN 11.4 GM/dL (10.7-15.3); LYMPH % 35.4 % (8-40); MCH 27.8 pg (25.7-33.7); MCHC 33.1 g/dl (32.0-36.0); MEAN CELL VOLUME 84.1 fl (80-96); MEAN PLT VOLUME 7.3 fl (7.5-11.1); MONO % 8.5 % (3.8-10.2); NEUT % 49.5 % (42.8-82.8); PLATELET COUNT 269 10^3/uL (134-434); RBC 4.09 M/mm3 (3.60-5.2); RDW 16.9 % (11.6-15.6); WHITE BLOOD COUNT 6.1 K/mm3 (4.0-10.0)
[2023-09-14 07:28] LABS: POTASSIUM 3.9 mmol/L (3.5-5.1)
[2023-09-14 07:36] LABS: ALBUMIN 2.9 g/dl (3.4-5.0)
[2023-09-14 07:39] LABS: CREATININE 0.9 mg/dL (0.55-1.3)
[2023-09-14 07:40] LABS: BILIRUBIN,TOTAL 0.2 mg/dL (0.2-1)
[2023-09-14 07:41] LABS: TOT PROT 7.4 g/dl (6.4-8.2)
[2023-09-14 11:07] VITALS: BP 129/94; PULSE 81; RESP 18
== END 2023-09-14 14:03 | disposition home or self-care (01) | DRG 690 ==
LOC: JER 11:11 → JERBED 18:41 → J4W 20:42 → OBSVTOIN 09-12 02:01
PROVIDERS: ADMIT Internal Medicine; ATTEND Internal Medicine
DX: N39.0 Urinary tract infection, site not specified (principal); E27.40 Unspecified adrenocortical insufficiency; E78.5 Hyperlipidemia, unspecified; E10.40 Type 1 diabetes mellitus with diabetic neuropathy, unspecified; I95.1 Orthostatic hypotension; E10.42 Type 1 diabetes mellitus with diabetic polyneuropathy
CPT/HCPCS: 36415; 70450-TC; 72125-TC; 72170-TC-FY; 73070-TC-LT-FY; 73502-TC-LT-FY; 80048; 80053; 81003; 82330; 82962; 83735; 84100; 84484; 85025; 85027; 86140; 87086; 87186; 93005; 93010; 93306-TC; 97116-GP; 97162-GP; 99285-25; G0378; J0131